=== PATIENT | male | born 1995 | race Asian ===

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

== ENCOUNTER 2018-08-27 01:58 | Emergency (ER) | payer OTHER ==
[~2018-08-27] VITALS: Ht 175.3 cm; Wt 70.3 kg
[2018-08-27 02:48] LABS: PLATELET COUNT 287 K/uL (142-355)
[2018-08-27 04:25] VITALS: BP 133/80; TEMP 98.4
== END 2018-08-27 04:35 | disposition home or self-care (01) ==
LOC: ED 01:58
PROVIDERS: Internal Medicine
DX: K59.00 Constipation, unspecified (principal); R10.30 Lower abdominal pain, unspecified; R11.2 Nausea with vomiting, unspecified
CPT/HCPCS: 36415; 74022; 80053; 81000; 85027; 96365; 96375; 99284; J1885; J2405

== ENCOUNTER 2018-10-22 11:02 | Outpatient (CLI) | payer OTHER | END 2018-10-22 19:37 | disposition home or self-care (01) | LOC: US 11:02 | DX: N63.20 Unspecified lump in the left breast, unspecified quadrant (principal) ==

== ENCOUNTER 2019-10-14 17:32 | Emergency (ER) | payer OTHER ==
[~2019-10-14] VITALS: Ht 180.3 cm; Wt 65.8 kg
[2019-10-14 17:39] VITALS: BP 119/67; TEMP 97.7
== END 2019-10-14 18:45 | disposition home or self-care (01) ==
LOC: ED 17:32
DX: S91.332A Puncture wound without foreign body, left foot, initial encounter (principal); W45.0XXA Nail entering through skin, initial encounter; Y92.89 Other specified places as the place of occurrence of the external cause
CPT/HCPCS: 90471; 90715; 99283